=== PATIENT | female | born 1970 ===

== ENCOUNTER → 2016-11-10 | Outpatient (CLI) | payer OTHER ==
--- NOTE | 2016-11-10 11:46 | Discharge Instructions ---
Discharge Instructions Procedure Procedure Date: Nov 10, 2016. Reason for visit: Left Mass. Discharge Discharge Date: Nov 10, 2016. Discharge Diagnosis: status post breast biopsy Instructions Activity Recommendations: Additional Limitations (see below) Return to School/Work: no limitations Recommended Home Diet: No Limitations Provider Instructions: ACTIVITY RECOMMENDATIONS: * No lifting, pushing, pulling or exercising the affected side for three days. RETURN TO SCHOOL/WORK: * You may return to work/school after the procedure, but do not perform any strenuous activities for 24 to 48 hours. MEDICATIONS: * Tylenol (two 325 mg) every four to six hours if needed for mild pain (if not allergic to Tylenol). DIET: * Resume previous diet. SPECIAL CARE INSTRUCTIONS: * Keep biopsy site dry for 24 hours. May shower after 24 hours, but do not soak (bathe) incision. * May remove Tegaderm (plastic patch) tomorrow AFTER showering. * Leave the steri-strips on for one week. Allow the steri-strips to fall off by themselves. If not off after one week, you may remove them. You may place a Bandaid crosswise over the strips, if desired. * Apply ice 10 minutes on and 10 minutes off as needed. * Wear a bra at bedtime to sleep more comfortably for 2-3 days. * Your referring physician should have the results after approximately 5 to 7 business days. * Call for unusual bleeding, fever, drainage, etc or if you have any questions call during normal business hours or after hours call Dr Gaines, . FOLLOW UP VISIT: Follow-up with Referring Physician as scheduled. Teetee Meneses Recommendations: Call your doctor if: * Temperature above 101 degrees * Pain not relieved by pain medicine ordered * There is increased drainage or redness from any incision * You have any unanswered questions or concerns. Your Doctors Instructions noted above were prepared by provider Rupal Gaines. Patient Signature Section: Patient Instructions Signature Page Jessicaalex Christopher Patient (or Guardian) Signature/Date: I have read and understand the instructions given to me by my caregivers. Caregiver/RN/Doctor Signature/Date: The above-named patient and/or guardian has received patient instructions on this date. + Original Patient Signature Page (only) stays with chart. Please make copy for patient.
--- NOTE | 2016-11-11 08:49 | MAMMOGRAPHY REPORT ---
ULTRASOUND GUIDED BIOPSY LEFT BREAST: 11/10/2016 CLINICAL HISTORY: Adjacent left 9:00 breast masses with associated coarse heterogeneous calcificatio ns. PATIENT CONSENT: The procedure, risks and benefits were discussed with the patient and informed writ ten consent was obtained, with the assistance of an operations consultant over the telephone. A timeout was pe rformed immediately prior to the procedure. The operations consultant provided assistance during the entire procedure. PROCEDURE DESCRIPTION: With ultrasound guidance, aseptic technique, and lidocaine as the local anest hetic (1% lidocaine to anesthetize the skin and 1% lidocaine with epinephrine to anesthetize the ellie per tissues), one of the masses of concern in the left 9:00 breast was sampled 5 times with a 14-gau [employer] biopsy needle. Immediately thereafter, with ultrasound guidance, aseptic technique, and lidocaine as the local anesthetic, a metallic localizer clip was placed at the biopsy site. Direct pressure was applied to the site immediately post procedure and hemostasis was achieved. Postproced ure unilateral mammograms were performed to confirm placement of the clip in the expected location o f the breast mass. A specimen radiograph was obtained, which shows the presence of calcifications w ithin one of the samples. The patient tolerated the procedure without complication. She was given wound care instructions. The specimens were sent to pathology for analysis. COMPARISON: Comparison is made to exams dated: 09/20/2016 mammogram, 09/20/2016 ultrasound, 09/02/20 16 mammogram, and 11/10/2016 mammogram - [facility]. IMPRESSION: ULTRASOUND GUIDED BIOPSY Ultrasound-guided core needle biopsy of one of the left 9:00 breast masses with associated calcifica tions, with clip placement. A specimen radiograph demonstrates calcifications to be present within the samples. The patient will receive pathology results from her referring physician. Rupal Gaines M.D. ah/:11/10/2016 11:49:02 Classification And Treatment Director: Prachi JENNINGS)(M), [facility]
--- NOTE | 2016-11-11 08:50 | MAMMOGRAPHY REPORT ---
UNILATERAL LEFT DIGITAL DIAGNOSTIC MAMMOGRAM: 11/10/2016 CLINICAL HISTORY: Status post ultrasound guided biopsy of the left 9:00 breast mass. TECHNIQUE: Postprocedural left CC and ML views were obtained. COMPARISON: Comparison is made to exams dated: 09/02/2016 mammogram, 09/20/2016 ultrasound, and 08/31 mammogram - [facility]. BREAST COMPOSITION: The tissue of the left breast is extremely dense, which lowers the sensitivity of mammography. FINDINGS: A new biopsy marker clip is seen at the site of the biopsied mass in the left 9:00 breast. No signi ficant postbiopsy hematoma is seen. IMPRESSION: POST PROCEDURE IMAGING FOR MARKER PLACEMENT New biopsy marker clip status post ultrasound guided biopsy of one of the left 9:00 breast masses wi th associated calcifications. Pathology results are pending. Approximately 10% of breast cancers are not detected with mammography. A negative mammographic repor t should not delay biopsy if a clinically suggestive mass is present. Rupal Gaines M.D. ah/:11/10/2016 11:59:23 Patient Account Specialist: Prachi ALVAREZ(R)(M), [facility] BI-RADS Code: Post Procedure Imaging For Marker Placement
== END | disposition home or self-care (01) ==
LOC: C.MAMM 10:57
PROVIDERS: ATTEND Physician Assistant Medical
DX: D05.12 Intraductal carcinoma in situ of left breast (principal)